=== PATIENT | female | born 1940 | race Caucasian/White ===

== ENCOUNTER 2025-02-28 12:11 | Emergency (ER) | payer OTHER ==
[~2025-02-28] VITALS: Ht 162.6 cm; Wt 53.1 kg
[2025-02-28] MEDS ORDERED: ACETAMINOPHEN ES 500 MG TABLET ONE (12:27)
[2025-02-28] MEDS: ACETAMINOPHEN ES 500 MG TABLET PO ONE (12:31)
[2025-02-28 13:06] VITALS: BP 139/72; TEMP 98; O2SAT 97
== END 2025-02-28 13:07 | disposition home or self-care (01) ==
LOC: ER 12:25 → EDBD 12:25 → ER 13:07
DX: S20.219A Contusion of unspecified front wall of thorax, initial encounter (principal); Z60.2 Problems related to living alone; W22.01XA Walked into wall, initial encounter; Y93.89 Activity, other specified; Y92.89 Other specified places as the place of occurrence of the external cause; Y99.8 Other external cause status
CPT/HCPCS: 71045-TC